=== PATIENT | female | born 1980 ===

== ENCOUNTER → 2020-07-24 13:31 | Outpatient (BNVA) | payer BC, SELFPAY | PROVIDERS: Family Provider Registered Nurse; PCP Registered Nurse; Visit Provider Podiatrist Foot & Ankle Surgery | DX: L60.3 Nail dystrophy (principal); M25.571 Pain in right ankle and joints of right foot; M77.31 Calcaneal spur, right foot | CPT/HCPCS: 73630; 87210 ==

== ENCOUNTER 2021-07-16 09:35 | Outpatient (RCR) | payer OTHER, SELFPAY | END 2021-07-28 23:59 | disposition home or self-care (01) | LOC: MPT 09:35 | PROVIDERS: Family Provider Registered Nurse; PCP Registered Nurse; Referring Provider Registered Nurse; Visit Provider Registered Nurse | DX: S13.4XXD Sprain of ligaments of cervical spine, subsequent encounter (principal); X58.XXXD Exposure to other specified factors, subsequent encounter; M62.830 Muscle spasm of back | CPT/HCPCS: 97032; 97110; 97161 ==

== ENCOUNTER 2021-07-29 06:00 | Outpatient (RCR) | payer OTHER, SELFPAY | END 2021-08-28 11:02 | disposition home or self-care (01) | LOC: MPT 06:00 | PROVIDERS: PCP Registered Nurse; Referring Provider Registered Nurse; Visit Provider Registered Nurse | DX: S13.4XXD Sprain of ligaments of cervical spine, subsequent encounter (principal); X58.XXXD Exposure to other specified factors, subsequent encounter; M62.830 Muscle spasm of back | CPT/HCPCS: 97032; 97110 ==